=== PATIENT | male | born 1950 | race Caucasian/White ===

== ENCOUNTER 2018-08-08 18:17 | Emergency (ER) | payer OTHER, MEDICARE ==
--- OUTSIDE RECORDS SUMMARY | 2018-08-08 18:22 | XMS REPORT ---
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 Active Onset: 02/07/2007 Pure hypercholesterolemia Hermilo Prather M.D. Active Onset: 12/09/2008 Essential hypertension Hermilo Prather M.D. Active Family History Date Family Member(s) Problem(s) Comments Father Congestive Heart Failure (CHF) Mother Diabetes Mellitus, II Mother Heart Disease Mother Hypertension First Brother Diabetes Mellitus, II First Sister Immune system disorder Social History Type Date Description Comments Cigarette Use Nonsmoker Smoking Patient is a former smoker Exercise Type/Frequency Current Does not exercise None The patient is not currently active Allergies, Adverse Reactions, Alerts Date Description Reaction Status Severity Comments 04/29/2011 NKDA active Medications Medication Date Status Form Strength Qnty SIG Indications Ordering Provider Shingrix 07/31 Active Suspension 50mcg/0.5 1unit 1 vaccine Z23 Gabrielle Sophy /2018 Rec ML s administniall Yang NP red intramusc ular Atorvastatin 10/08 Active Tablets 80mg 90tab Take 1 E78.4 s Tablet By Ronen, Mouth MAGNETIC TAPE COMPOSER OPERATOR Every Day Ramipril 10/08 Active Capsules 5mg 90cap Take One I10 s Capsule Ronen, By Mouth MAGNETIC TAPE COMPOSER OPERATOR Every Day Nitrostat 03/16 Active Tablets 0.4mg 30tab 1 sl as Sub s needed, Yamilka, repeat M.D. every 5 minutes up to three tabs, call 911 Ecasa 05/05 Active 81mg 1 po qd /[facility] Hydrochlorothiazi Active Tablets 25mg 90tab 1 by I10 Samara de /0000 s mouth Ronen, every day MAGNET[employer] TAPE COMPOSER OPERATOR Toprol XL Active Tablets ER 50mg 90tab Take 1 I10 Samara /0000 24HR s Tablet By Ronen, Mouth MAGNETIC TAPE COMPOSER OPERATOR Every Day Cheratussin ac 08/12 Hx Syrup 100-10mg/ 4oz 1-2 R0 5ML teaspoon Robin, - by mouth Afnp-C 01/19 night at bedtime as needed cough Azithromycin 08/12 Hx Tablets 250mg 6tabs 2 tabs R05 today; Robin, - then one Afnp-C 08/17 tab day x 4 more days Pneumovax 23 07/09 Hx Injection 25mcg/0.5 May give ML him the Yamilka, - pcv13 M.D. 07/10 vaccine /2014 Cephalexin 11/01 Hx Tablets 500mg 30tab 1 by 680.2 s nasim Hawkins NP - three 11/11 times day x 10 days Androgel Pump 11/23 Hx Gel 1% Gel 150gr apply 5 Pump ams gm daily. Yamilka, - (4 M.D. 10/08 pumps) code f Metformin HCL 11/14 Hx Tablets 500mg 60tab 1 po bid 790.21 s Rodolfo, - MAGNETIC TAPE COMPOSER OPERATOR 11/22 Ramipril 10/25 Hx Capsules 2.5mg 30cap 1 po 401.9 Nicol /2014 s daily Rodolfo, - MAGNETIC TAPE COMPOSER OPERATOR 10/08 Lipitor 05/22 Hx Tablets 80mg 30tab take 1 272.0 Hermilo A. s tablet by Yamilka, - mouth M.D. 10/08 every day Androgel Pump 01/05 Hx Gel 1% Gel 150gr apply 5 Hermilo . Pump ams gm daily. Yamilka, - (4 M.D. 10/25 pumps) code f Androgel 10/15 Hx Gel 50mg/5GM 150gm 50 mg Hermilo A. once a Darmary, - day (4 M.D. 01/05 pumps) Niaspan 09/14 Hx Tablets ER 500mg 30tab one Samara s tablet po Ronen, - [facility] MAGNETIC TAPE COMPOSER OPERATOR 10/25 Niaspan 05/12 Hx Tablets ER 500mg 30tab one Hermilo . s tablet po Darlow, - qhs M.D. 09/14 Androderm 07/31 Hx Patches 5mg/24HR 30uni 1 patch Hermilo A. 24HR ts q Darmary, - M.D. 10/25 Simvastatin 03/13 Hx Tablets 80mg 90tab 1 po Michaelle M. s daily LaFace, - M.D. 03/13 Vytorin 03/13 Hx Tablets 10-80mg 30tab Take 1 Hermilo A. s Tablet Darlow, - Every Day M.D. 05/22 Cialis 10/14 Hx Tablets 20mg 8tabs Take 12 Hermilo A. Tablet Darmary, - Once A M.D. 09/14 Day pr as Directed 1 hour Before Sexual Relations MRI 06/04 Hx MRI r Hermilo A. kneee Yamilka, - without M.D. 10/10 dx;729.5 Out Of Work Until 07/18 Hx out of 729.5 Hermilo A. work Yamilka, - until M.D. 06/04 notice Physical Therapy 07/18 Hx treatment 729.5 Hermilo A. and Yamilka, - evaluatio M.D. 06/04 n posterior thigh pain Out Of Work Until 07/12 Hx out of Jose Eduardo F. /2006 work Shallish, - until M.D. 07/1807/17/07 Lab 07/11 Hx d-dimer 729.81 Hermilo A. stat Yamilka, - hold/call M.D. 07/12 dx: dvt Altace 05/05 Hx Capsules 2.5mg 30cap 1 po qd Hermilo A. s Yamilka - M.DPamella 10/10 Omacor 09/02 Hx 1Gram 120un 2 po bid Hermilo A. its Yamilka - M.D. 10/10 Vytorin 09/02 Hx Tabs 10-80mg 30tab Take 1 Hermilo A. s Tablet Yamilka, - Every Day M.D. 03/13 Zocor 11/03 Hx 80mg 30uni 1 po qd Hermilo A. Layton Yusuf M.Bryant 09/02 Zetia 03/04 Hx 10mg 30uni 1 qd Hermilo A. Layton Yusuf.Bryant 09/02 Ec Asa 11/03 Hx 325mg 1 qd [facility] Metoprolol 08/16 Hx 50 0unit / PO Hermilo A. s bid Yamilka - Kevin.DPamella 11/03 Nitroquick 08/16 Hx 0.3mg 50uni 1 SL prn Michaelle M. ts X 3 Layton Ospina M.D. 03/17 Zocor 08/16 Hx 40mg 30uni 1 qhs Hermilo A. Layton Yusuf.Bryant 11/03 Plavix 08/16 Hx 75mg 30uni 1 PO qd Hermilo A. Layton Yusuf M.D. 11/03 Vasotec 08/16 Hx 5mg 90uni One qd Hermilo A. Layton Yusuf M.D. 11/03 Naproxen 09/09 Hx 375mg Tab 50uni 1 PO tid Antony Payan For One Blumkin, - Week Then M.D. 08/16 tid prn /1999 Lovaza Hx Caps 1gm 120ca take 2 Unknown /0000 ps capsules - qd 10/08 Ramipril Hx Capsules 2.5mg 30cap Take 1 Unknown /0000 s Capsule - Every Day 10/25 Cialis Hx Tablets 10mg 1 by Unknown /0000 mouth - q72hr as 11/22 Tussin CF Max Hx Liquid 5-10-200m 2 Unknown Multi-Symptom /0000 g/5ML tablespoo Cold - ns by 08/12 every 6 hrs as needed Mucinex Hx Tablets ER 600mg 1 by Unknown /0000 12HR mouth - twice a Immunizations CPT Code Status Date Vaccine Lot # [id number] Given 07/16/2017 High-Dose, Influenza Virus Vacccine-fluzone 65 and older [id number] Given 11/01/2016 Pneumococcal Immunization 11050 Given 09/13/2016 High-Dose, Influenza Virus Vacccine-fluzone 65 and older 24296 Given 08/21/2015 High-Dose, Influenza Virus Vacccine-fluzone 65 and older 07420 Given 10/08/2014 Influenza vac quadrivalent preservative free 3yrs [id number] and up Vital Signs Date Vital Result Comment 07/31/2018 BP Systolic 130 mmHg BP Diastolic 72 mmHg Heart Rate 72 /min Body Temperature 97.9 F Respiratory Rate 16 /min Height 70 inches 5'10" Weight 334.25 lb BMI (Body Mass Index) 48.0 kg/m2 01/19/2017 BP Systolic 144 mmHg BP Diastolic 88 mmHg Heart Rate 88 /min Body Temperature 98.4 F Respiratory Rate 18 /min Weight 337.00 lb 08/12/2015 BP Systolic 170 mmHg BP Diastolic 90 mmHg Heart Rate 76 /min Body Temperature 99.3 F Respiratory Rate 18 /min O2 % BldC Oximetry 96 % URI Height 70 inches 5'10" Weight 335.00 lb BMI (Body Mass Index) 48.1 kg/m2 07/09/2015 BP Systolic 156 mmHg BP Diastolic 70 mmHg Heart Rate 68 /min Body Temperature 97.1 F Respiratory Rate 12 /min Height 70 inches 5'10" Weight 330.00 lb BMI (Body Mass Index) 47.3 kg/m2 11/01/2014 BP Systolic 142 mmHg BP Diastolic 80 mmHg Heart Rate 88 /min Body Temperature 98.6 F Respiratory Rate 18 /min Height 71 inches 5'11" Weight 332.00 lb BMI (Body Mass Index) 46.3 kg/m2 10/08/2014 BP Systolic 150 mmHg BP Diastolic 78 mmHg Heart Rate 80 /min Body Temperature 98.7 F Respiratory Rate 18 /min Height 71 inches 5'11" Weight 330.00 lb BMI (Body Mass Index) 46.0 kg/m2 11/22/2013 BP Systolic 140 mmHg BP Diastolic 68 mmHg Heart Rate 72 /min Body Temperature 98.6 F Respiratory Rate 20 /min Height 71 inches 5'11" Weight 330.00 lb BMI (Body Mass Index) 46.0 kg/m2 10/25/2013 BP Systolic 148 mmHg BP Diastolic 86 mmHg Heart Rate 68 /min Body Temperature 97.5 F Respiratory Rate 16 /min Height 70.75 inches 5'10.75" measured Weight 337.00 lb BMI (Body Mass Index) 47.3 kg/m2 09/14/2011 BP Systolic 110 mmHg BP Diastolic 60 mmHg Heart Rate 66 /min Body Temperature 97.0 F Respiratory Rate 20 /min Height 70.75 inches 5'10.75" Weight 319.00 lb BMI (Body Mass Index) 44.8 kg/m2 04/12/2011 BP Systolic 124 mmHg BP Diastolic 80 mmHg Heart Rate 64 /min Body Temperature 97.7 F Respiratory Rate 20 /min Height 70.75 inches 5'10.75" Weight 324.00 lb BMI (Body Mass Index) 45.5 kg/m2 Right Visual Acuity Distance 20/25 corrected Left Visual Acuity Distance 20/40 corrected 07/15/2010 BP Systolic 132 mmHg BP Diastolic 80 mmHg Heart Rate 72 /min Body Temperature 98.9 F Respiratory Rate 18 /min Height 70.75 inches 5'10.75" Weight 325.00 lb BMI (Body Mass Index) 45.6 kg/m2 03/13/2010 BP Systolic 132 mmHg BP Diastolic 72 mmHg Heart Rate 72 /min Body Temperature 97.1 F Weight 323.00 lb 12/09/2008 BP Systolic 120 mmHg BP Diastolic 78 mmHg Heart Rate 76 /min Body Temperature 97.0 F Respiratory Rate 20 /min Weight 317.00 lb 10/10/2008 BP Systolic 130 mmHg BP Diastolic 64 mmHg Heart Rate 72 /min Body Temperature 98.1 F Respiratory Rate 16 /min Height 70.75 inches 5'10.75" Weight 306.00 lb BMI (Body Mass Index) 43.0 kg/m2 06/04/2008 BP Systolic 138 mmHg BP Diastolic 72 mmHg Heart Rate 88 /min Height 72 inches 6'0" Weight 299.00 lb BMI (Body Mass Index) 40.5 kg/m2 08/07/2007 BP Systolic 128 mmHg BP Diastolic 70 mmHg Heart Rate 72 /min Height 72 inches 6'0" Weight 304.00 lb BMI (Body Mass Index) 41.2 kg/m2 07/18/2007 BP Systolic 122 mmHg BP Diastolic 70 mmHg Heart Rate 74 /min Respiratory Rate 16 /min Height 6.00 inches 0'6" Weight 304.00 lb BMI (Body Mass Index) 5936.4 kg/m2 07/11/2007 BP Systolic 122 mmHg BP Diastolic 70 mmHg Heart Rate 76 /min Body Temperature 98.2 F Respiratory Rate 16 /min Height 6.00 inches 0'6" Weight 298.00 lb BMI (Body Mass Index) 5819.3 kg/m2 02/07/2007 BP Systolic 138 mmHg BP Diastolic 90 mmHg Heart Rate 84 /min Respiratory Rate 16 /min Height 6.00 inches 0'6" Weight 294.00 lb BMI (Body Mass Index) 5741.2 kg/m2 05/05/2006 BP Systolic 132 mmHg BP Diastolic 82 mmHg Heart Rate 72 /min Respiratory Rate 16 /min Height 6.00 inches 0'6" Weight 290.00 lb BMI (Body Mass Index) 5663.1 kg/m2 09/02/2005 BP Systolic 130 mmHg BP Diastolic 82 mmHg Heart Rate 72 /min Respiratory Rate 18 /min Height 6.00 inches 0'6" 08/12/2005 BP Systolic 120 mmHg BP Diastolic 80 mmHg Heart Rate 60 /min Height 6.00 inches 0'6" Weight 297.00 lb BMI (Body Mass Index) 5799.8 kg/m2 05/25/2005 BP Systolic 138 mmHg BP Diastolic 72 mmHg Heart Rate 72 /min Respiratory Rate 18 /min Height 6.00 inches 0'6" 08/06/2004 BP Systolic 120 mmHg BP Diastolic 78 mmHg Heart Rate 84 /min Height 6.00 inches 0'6" Weight 289.00 lb BMI (Body Mass Index) 5643.5 kg/m2 06/04/2003 BP Systolic 128 mmHg BP Diastolic 72 mmHg Heart Rate 74 /min Respiratory Rate 18 /min Height 6.00 inches 0'6" Weight 285.00 lb BMI (Body Mass Index) 5565.4 kg/m2 02/28/2003 BP Systolic 112 mmHg BP Diastolic 70 mmHg Height 6.00 inches 0'6" Weight 280.00 lb BMI (Body Mass Index) 5467.8 kg/m2 05/07/2002 BP Systolic 120 mmHg BP Diastolic 76 mmHg Heart Rate 74 /min Height 6.00 inches 0'6" Weight 278.00 lb BMI (Body Mass Index) 5428.7 kg/m2 06/30/2001 BP Systolic 132 mmHg BP Diastolic 72 mmHg Height 6.00 inches 0'6" Weight 280.00 lb BMI (Body Mass Index) 5467.8 kg/m2 01/10/2001 BP Systolic 122 mmHg BP Diastolic 82 mmHg Heart Rate 88 /min Height 6.00 inches 0'6" Weight 271.00 lb BMI (Body Mass Index) 5292.0 kg/m2 11/03/2000 BP Systolic 120 mmHg LG Cuff, RT Arm BP Diastolic 70 mmHg LG Cuff, RT Arm BP Systolic Recheck 120 mmHg LT Arm BP Diastolic Recheck 80 mmHg LT Arm Heart Rate 72 /min Height 6.00 inches 0'6" Weight 264.00 lb BMI (Body Mass Index) 5155.3 kg/m2 08/16/2000 BP Systolic 118 mmHg LA, LG Cuff BP Diastolic 60 mmHg LA, LG Cuff Heart Rate 72 /min Reg Height 6.00 inches 0'6" Weight 265.00 lb BMI (Body Mass Index) 5174.9 kg/m2 09/02/1997 BP Systolic 140 mmHg BP Diastolic 80 mmHg Height 6.00 inches 0'6" Weight 264.00 lb Results Test Date Test Result H/L Range Note Comprehensive Metabolic Prof 07/31/2018 Sodium 141 mEq/L 134-149 Potassium 4.0 mEq/L 3.6-5.5 Chloride 98 mEq/L 94-112 Carbon Dioxide 25 mEq/L 21-32 Glucose 157 mg/dL High 70-105 BUN 14 mg/dL 6-26 Creatinine 0.9 mg/dL 0.6-1.4 BUN/Creat Ratio 15.6 CALC 8.0-36.0 Calcium 9.7 mg/dL 8.6-10.2 Total Protein 8.0 g/dL 6.4-8.3 Albumin 4.6 g/dL 3.8-5.5 Globulin 3.4 g/dL 2.0-4.8 A/G Ratio 1.4 CALC 0.6-2.3 Alk. Phosphatase 59 U/L 22-95 Alt (SGPT) 45 U/L High 7-35 Ast (Sgot) 38 U/L High 5-34 Total Bilirubin 0.6 mg/dL 0.2-1.3 GFR Non- >60 ml/min/1.73m^ >=60 GFR >60 ml/min/1.73m^ >=60 Laboratory test finding 07/31/2018 TSH 2.99 mIU/L 0.50-6.00 PSA 0.3 ng/mL 0.0-4.0 Lipid Profile 07/31/2018 Cholesterol 206 mg/dL High 120-200 Triglycerides 320 mg/dL High 30-200 HDL Cholesterol 30 mg/dL 30-70 LDL (Calculated) 112 CALC 0-129 VLDL Cholesterol 64 mg/dL High 0-50 HDL Risk Factor 6.9 CALC High 0.0-4.4 Laboratory test finding 07/31/2018 LDL, Direct 134 mg/dL High 0-130 CBC Electronic ([facility] New) 07/31/2018 WBC 6.57 4.0-10.0 RBC 4.89 3.93-6.0 Hemoglobin (Fma/CMC/CTX) 14.8 g/dL 12.0-17.0 Hematocrit (Fma/CMC/CTX) 44.3 % 35.0-50.0 Mean Corpuscular Vol 90.6 fL 80-95 Mean Corpuscular Hemoglobin 30.3 pg 25.6-32.2 Mean Corpuscular Hemo Concen 33.4 g/dL 32.2-36.0 Platelets 262 10^3/ul 163-400 RDW-CV 15.2 High 11.6-14.4 Mean Platelet Volume 9.9 fL 8.0-12.4 Absolute Neutrophils BLD 4.23 1.56-6.13 Absolute Lymphocytes 1.52 1.18-3.74 Absolute Monocytes BLD Auto 0.54 0.24-0.82 Absolute Eos Blood 0.23 0.04-0.54 Absolute Basophils 0.04 0.01-0.08 Neutrophil % 64.4 % 34.0-70.0 Lymph% 23.1 % 20.0-52.0 Monocytes % 8.2 % 5.0-12.0 Eos % 3.5 % 0.7-7.0 Basophil% 0.6 % 0-1.2 Lipid Profile 01/19/2017 Cholesterol 203 mg/dL High 120-200 Triglycerides 173 mg/dL 30-200 HDL Cholesterol 33 mg/dL 30-70 LDL (Calculated) 135 CALC High 0-129 VLDL Cholesterol 35 mg/dL 0-50 HDL Risk Factor 6.2 CALC High 0.0-4.4 Comprehensive Metabolic Prof 01/19/2017 Sodium 138 mEq/L 134-149 Potassium 4.5 mEq/L 3.6-5.5 Chloride 99 mEq/L 94-112 Carbon Dioxide 32 mEq/L 21-32 Glucose 96 mg/dL 70-105 BUN 14 mg/dL 6-26 Creatinine 0.9 mg/dL 0.6-1.4 BUN/Creat Ratio 15.6 CALC 8.0-36.0 Calcium 9.5 mg/dL 8.6-10.2 Total Protein 7.8 g/dL 6.4-8.3 Albumin 4.5 g/dL 3.8-5.5 Globulin 3.3 g/dL 2.0-4.8 A/G Ratio 1.4 CALC 0.6-2.3 Alk. Phosphatase 52 U/L 22-95 Alt (SGPT) 38 U/L High 7-35 1 Ast (Sgot) 28 U/L 5-34 Total Bilirubin 0.6 mg/dL 0.2-1.3 GFR Non- >60 ml/min/1.73m^ >=60 GFR >60 ml/min/1.73m^ >=60 Laboratory test finding 01/19/2017 TSH 4.31 mIU/L 0.50-6.00 Free T4 0.58 ng/dL Low 0.75-1.54 2 Testosterone 296.9 ng/dL 262.0-870.0 PSA 0.4 ng/mL 0.0-4.0 CBC Electronic (Fma) 01/19/2017 WBC 7.0 3.6-9.6 RBC 5.13 3.90-5.70 Hemoglobin (Fma/CMC/CTX) 15.2 g/dL 12.1 - 17.2 Hematocrit (Fma/CMC/CTX) 46.5 % 36.1 - 50.3 Platelets 253 10^3/ul 150-400 Lymph% 32.9 % 17.0-48.0 Mixed% 8.0 Neutrophils % 59.1 Mean Corpuscular Vol 91 82.2-97.4 Mean Corpuscular Hemoglobin 29.7 27.6-33.3 Mean Corpuscular Hemo Concen 32.7 32.0-36.0 RDW 15.9 High 11.6-13.7 Mean Platelet Volume 7.4 5.5-11.0 Comprehensive Metabolic Prof 01/09/2016 Sodium 139 mEq/L 134-149 Potassium 4.5 mEq/L 3.6-5.5 Chloride 99 mEq/L 94-112 Carbon Dioxide 32 mEq/L 21-32 Glucose 97 mg/dL 70-105 BUN 12 mg/dL 6-26 Creatinine 0.8 mg/dL 0.6-1.4 BUN/Creat Ratio 15.0 CALC 8.0-36.0 Calcium 9.0 mg/dL 8.6-10.2 Total Protein 7.6 g/dL 6.4-8.3 Albumin 4.3 g/dL 3.8-5.5 Globulin 3.3 g/dL 2.0-4.8 A/G Ratio 1.3 CALC 0.6-2.3 Alk. Phosphatase 56 U/L 22-95 Alt (SGPT) 42 U/L High 7-35 3 Ast (Sgot) 29 U/L 5-34 Total Bilirubin 0.7 mg/dL 0.2-1.3 GFR Non- >60 ml/min/1.73m^ >=60 GFR >60 ml/min/1.73m^ >=60 Lipid Profile 01/09/2016 Cholesterol 203 mg/dL High 120-200 Triglycerides 159 mg/dL 30-200 HDL Cholesterol 27 mg/dL Low 30-70 4 LDL (Calculated) 144 CALC High 0-129 VLDL Cholesterol 32 mg/dL 0-50 HDL Risk Factor 7.5 CALC High 0.0-4.4 Laboratory test 11/18/2015 Surgical Pathology SEE RESULT BELOW 5 finding Laboratory test 07/09/2015 PSA 0.2 ng/mL 0.0-4.0 6 finding Lipid Profile 07/09/2015 Cholesterol 221 mg/dL High 120-200 Triglycerides 149 mg/dL 30-200 HDL Cholesterol 32 mg/dL 30-70 LDL (Calculated) 159 CALC High 0-129 VLDL Cholesterol 30 mg/dL 0-50 HDL Risk Factor 6.9 CALC High 0.0-4.4 Comprehensive Metabolic Prof 07/09/2015 Sodium 142 mEq/L 134-149 Potassium 4.2 mEq/L 3.6-5.5 Chloride 100 mEq/L 94-112 Carbon Dioxide 25 mEq/L 21-32 Glucose 90 mg/dL 70-105 BUN 16 mg/dL 6-26 Creatinine 0.8 mg/dL 0.6-1.4 BUN/Creat Ratio 20.0 CALC 8.0-36.0 Calcium 9.6 mg/dL 8.6-10.2 Total Protein 7.8 g/dL 6.4-8.3 Albumin 4.7 g/dL 3.8-5.5 Globulin 3.1 g/dL 2.0-4.8 A/G Ratio 1.5 CALC 0.6-2.3 Alk. Phosphatase 49 U/L 22-95 Alt (SGPT) 47 U/L High 7-35 7 Ast (Sgot) 35 U/L High 5-34 8 Total Bilirubin 0.7 mg/dL 0.2-1.3 GFR Non- >60 ml/min/1.73m^ >=60 GFR >60 ml/min/1.73m^ >=60 Comprehensive Metabolic Prof 10/08/2014 Sodium 138 mEq/L 134-149 Potassium 4.3 mEq/L 3.6-5.5 Chloride 96 mEq/L 94-112 Carbon Dioxide 31 mEq/L 21-32 Glucose 110 mg/dL High 70-105 9 BUN 17 mg/dL 6-26 Creatinine 0.8 mg/dL 0.6-1.4 BUN/Creat Ratio 21.3 CALC 8.0-36.0 Calcium 9.7 mg/dL 8.6-10.2 Total Protein 8.0 g/dL 6.4-8.3 Albumin 4.3 g/dL 3.8-5.5 Globulin 3.7 g/dL 2.0-4.8 A/G Ratio 1.2 CALC 0.6-2.3 Alk. Phosphatase 50 U/L 22-95 Alt (SGPT) 52 U/L High 7-35 10 Ast (Sgot) 32 U/L 5-34 Total Bilirubin 0.7 mg/dL 0.2-1.3 Lipid Profile 10/08/2014 Cholesterol 230 mg/dL High 120-200 Triglycerides 153 mg/dL 30-200 HDL Cholesterol 31 mg/dL 30-70 LDL (Calculated) 168 CALC High 0-129 VLDL Cholesterol 31 mg/dL 0-50 HDL Risk Factor 7.4 CALC High 0.0-4.4 Laboratory test 11/22/2013 Testosterone Total 188.04 ng/dL Low 262-870 11 finding Laboratory test 11/14/2013 Hemoglobin A1c 5.9 % High 4.1-5.7 finding (a/[facility] [place],CX) Laboratory test 11/02/2013 TSH 4.32 mIU/L 0.50-6.00 finding PSA 0.27 ng/mL 0.00-4.00 Lipid Profile 11/02/2013 Cholesterol 232 mg/dL High 120-200 HDL 24 mg/dL Low 30-70 Triglycerides 144 mg/dL 30-200 HDL Risk Factor 9.7 CALC High 0.0-4.4 LDL (Calculated) 179 CALC High 0-129 VLDL (Calculated) 29 mg/dL 0-50 CBC Electronic ([facility]) 11/02/2013 WBC 5.9 3.6-9.6 RBC 4.95 3.90-5.70 Hemoglobin (a/CMC/CTX) 14.8 g/dL 12.1 - 17.2 Hematocrit (a/CMC/CTX) 44.9 % 36.1 - 50.3 Platelets 215 10^3/ul 150-400 Lymph% 35.8 % 17.0-48.0 Mixed% 6.3 Neutrophils % 57.9 Mean Corpuscular Vol 91 82.2-97.4 Mean Corpuscular Hemoglobin 29.8 27.6-33.3 Mean Corpuscular Hemo Concen 32.9 32.0-36.0 RDW 15.0 High 11.6-13.7 Mean Platelet Volume 6.5 6.5-11.0 Ua - Micro ([facility]) 11/02/2013 Appearance CLEAR Color YELLOW Glucose, Urine (a/CMC/CTX) NEG Bilirubin NEG Ketones NEG SP Grav 1.025 Blood SMALL PH 5.5 Protein NEG Urobil 0.2 Nitrite NEG Leukocytes (a/CMC/Centrex) NEG Hyaline - /Lpf Granular - /Lpf WBC (a,Centrex) - RBC 1-3 Mucus (Fma/CBC/Centrex) SMALL AMOUNT /Lpf Epith - /Lpf Bacteria - /Hpf Amorphous (Fma/CMC/Centrex) - /Lpf Crystals, Fluid (Fma/CMC/CTX) - Z#Comments - Comprehensive Metabolic Prof 11/02/2013 Albumin 4.9 g/dL 3.8-5.5 Alk. Phos. 57 U/L 22-95 Alt (SGPT) 56 U/L High 10-40 Ast (Sgot) 37 U/L High 5-34 BUN 22 mg/dL 6-26 Calcium 9.5 mg/dL 8.6-10.2 Chloride 96 mEq/L 94-112 Creatinine 1.1 mg/dL 0.6-1.4 Carbon Dioxide 30 mEq/L 21-32 Glucose 119 mg/dL High 70-105 Sodium 138 mEq/L 134-149 Total Bilirubin 0.6 mg/dL 0.2-1.3 Total Protein 7.9 g/dL 6.3-8.1 Potassium 4.3 mEq/L 3.6-5.5 Globulin 2.9 g/dL 2.0-4.8 A/G Ratio 1.7 Calc 0.6-2.3 BUN/Creat Ratio 20.1 Calc 8.0-36.0 Laboratory test finding 11/02/2013 Microalb, Random 29.8 mg/L 0.5-37 (Fma/CMC/CTX) Ua - Micro (Fma) 04/12/2011 Appearance clear Color yellow Glucose, Urine (Fma/CMC/CTX) - Bilirubin - Ketones - SP Grav >1.030 Blood moderate PH 5.5 Protein - Urobil 0.2 Nitrite - Leukocytes (Fma/CMC/Centrex) - Hyaline - /Lpf Granular - /Lpf WBC (Fma,Centrex) 0-2 RBC 3-5 Mucus (Fma/CBC/Centrex) sm amt /Lpf Epith - /Lpf Bacteria rare /Hpf Amorphous (Fma/CMC/Centrex) - /Lpf Crystals, Fluid (Fma/CMC/CTX) - Z#Comments - Laboratory test finding 04/12/2011 PSA 0.20 ng/mL 0.00-4.00 12 Lipid Profile 04/12/2011 Cholesterol 149 mg/dL 120-200 HDL 27 mg/dL Low 30-70 13 Triglycerides 129 mg/dL 30-200 HDL Risk Factor 5.5 CALC High 0.0-4.0 LDL (Calculated) 97 CALC 0-129 VLDL (Calculated) 26 mg/dL 0-50 [facility] Prof 04/12/2011 Albumin 4.8 g/dL 3.8-5.5 Alk. Phos. 41 U/L 22-95 Alt (SGPT) 42 U/L High 10-40 Ast (Sgot) 40 U/L High 5-34 BUN 15 mg/dL 6-26 Calcium 9.0 mg/dL 8.6-10.2 Chloride 102 mEq/L 94-112 Creatinine 0.9 mg/dL 0.6-1.4 Carbon Dioxide 26 mEq/L 21-32 Glucose 112 mg/dL High 70-105 14 Sodium 138 mEq/L 134-149 Total Bilirubin 0.4 mg/dL 0.2-1.3 Total Protein 7.1 g/dL 6.3-8.1 Potassium 4.5 mEq/L 3.6-5.5 Globulin 2.4 g/dL 2.0-4.8 A/G Ratio 2.0 Calc 0.6-2.2 BUN/Creat Ratio 17.9 Calc 8.0-36.0 [facility] Prof 07/15/2010 Albumin 4.8 g/dL 3.8-5.5 Alk. Phos. 43 U/L 22-95 Alt (SGPT) 40 U/L 10-40 Ast (Sgot) 27 U/L 5-34 BUN 11 mg/dL 6-26 Calcium 8.7 mg/dL 8.6-10.2 Chloride 103 mEq/L 94-112 Creatinine 0.9 mg/dL 0.6-1.4 Carbon Dioxide 25 mEq/L 21-32 Glucose 105 mg/dL 70-105 Sodium 136 mEq/L 134-149 Total Bilirubin 0.5 mg/dL 0.2-1.3 Total Protein 7.4 g/dL 6.3-8.1 Potassium 4.0 mEq/L 3.6-5.5 Globulin 2.6 g/dL 2.0-4.8 A/G Ratio 1.8 Calc 0.6-2.2 BUN/Creat Ratio 12.8 Calc 8.0-36.0 Laboratory test 07/15/2010 Testosterone, Serum 171 ng/dL Low 280-800 finding Laboratory test 07/15/2010 Hemoglobin A1c 6.0 % High 4.1-5.7 finding (a/CMC,CX) Laboratory test 07/15/2010 PSA 0.20 ng/mL 0.00-4.00 finding TSH 3.15 mIU/L 0.50-6.00 Ua - Micro (a) 07/15/2010 Appearance clear Color yellow Glucose, Urine (Fma/CMC/CTX) neg Bilirubin neg Ketones neg SP Grav 1.015 Blood mod PH 5.0 Protein neg Urobil 0.2 Nitrite neg Leukocytes (Fma/CMC/Centrex) neg Hyaline - /Lpf Granular - /Lpf WBC (a,Centrex) 0-1 RBC 3-5 Mucus (Fma/CBC/[facility]rex) - /Lpf Epith - /Lpf Bacteria rare /Hpf Amorphous (Fma/CMC/Centrex) - /Lpf Crystals, Fluid (Fma/CMC/CTX) - Z#Comments - Lipid Profile 07/15/2010 Cholesterol 181 mg/dL 120-200 HDL 30 mg/dL 30-70 Triglycerides 157 mg/dL 30-200 HDL Risk Factor 6.0 CALC 4.2-7.0 LDL (Calculated) 119 CALC 0-129 VLDL (Calculated) 31 mg/dL 0-50 CBC ([facility]) 03/14/2010 WBC 5.3 3.6-9.6 RBC 4.80 3.90-5.70 Hemoglobin (Fma/CMC/CTX) 14.6 g/dL 12.1 - 17.2 Hematocrit (a/CMC/CTX) 43.5 % 36.1 - 50.3 Mean Corpuscular Vol 90.6 82.2-97.4 Mean Corpuscular Hemaglobin 30.4 27.6-33.3 Mean Corpuscular Hemo Concen 33.6 33.0-36.0 Platelets 207 10^3/ul 150-400 Lymph% 39.7 20.5-51.1 Mixed% 14.1 Neutrophils % 46.2 RDW 15.4 High 11.6-13.7 Mean Platelet Volume 10.0 7.4-10.4 Lipid Profile 03/14/2010 Cholesterol 166 mg/dL 120-200 HDL 29 mg/dL Low 30-70 15 Triglycerides 131 mg/dL 30-200 HDL Risk Factor 5.8 CALC 4.2-7.0 LDL (Calculated) 111 CALC 0-129 VLDL (Calculated) 26 mg/dL 0-50 Comprehensive Metabolic Prof 03/14/2010 Albumin 4.7 g/dL 3.8-5.5 Alk. Phos. 29 U/L 22-95 Alt (SGPT) 39 U/L 10-40 Ast (Sgot) 29 U/L 5-34 BUN 16 mg/dL 6-26 Calcium 9.8 mg/dL 8.6-10.2 Chloride 103 mEq/L 94-112 Creatinine 1.0 mg/dL 0.6-1.4 Carbon Dioxide 28 mEq/L 21-32 Glucose 93 mg/dL 70-105 Sodium 137 mEq/L 134-149 Total Bilirubin 0.5 mg/dL 0.2-1.3 Total Protein 7.5 g/dL 6.3-8.1 Potassium 4.4 mEq/L 3.6-5.5 Globulin 2.8 g/dL 2.0-4.8 A/G Ratio 1.7 Calc 0.6-2.2 BUN/Creat Ratio 16.0 Calc 8.0-36.0 Laboratory test finding 03/14/2010 Homocysteine 7.5 umol/L 0.0-15.0 16 Vitamin D, 25 Oh 19.4 ng/mL Low 32.0-100.0 16, 17 CRP (High Sensitivity) 2.27 mg/L 0.00-3.00 16, 18 Lipid Profile 12/09/2008 Cholesterol 204 mg/dL High 120-200 19 HDL 28 mg/dL Low 30-70 19, 20 Triglycerides 118 mg/dL 30-200 19 HDL Risk Factor 7.2 CALC High 4.2-7.0 19 LDL (Calculated) 152 CALC High 0-129 19 VLDL (Calculated) 24 mg/dL 0-50 19 Comprehensive Metabolic Prof 12/09/2008 Albumin 4.7 g/dL 3.8-5.5 19 Alk. Phos. 49 U/L - 19 Alt (SGPT) 38 U/L 10-40 19 Ast (Sgot) 31 U/L 5-34 19 BUN 20 mg/dL 6-26 19 Calcium 10.0 mg/dL 8.6-10.2 19 Chloride 106 mEq/L 94-112 19 Creatinine 0.8 mg/dL 0.6-1.4 19 Carbon Dioxide 24 mEq/L 21-32 19 Glucose 95 mg/dL 70-105 19 Sodium 144 mEq/L 134-149 19 Total Bilirubin 0.4 mg/dL 0.2-1.3 19 Total Protein 7.9 g/dL 6.3-8.1 19 Potassium 4.6 mEq/L 3.6-5.5 19 Globulin 3.3 g/dL 2.0-4.8 19 A/G Ratio 1.4 Calc 0.6-2.2 19 BUN/Creat Ratio 24.2 Calc 8.0-36.0 19 Laboratory test finding 12/09/2008 PSA 0.30 ng/mL 0.00-4.00 19 Ua - Micro (a) 12/09/2008 Appearance clear Color yellow Glucose, Urine (Fma/CMC/CTX) neg Bilirubin neg Ketones neg SP Grav 1.025 Blood moderate PH 5.0 Protein ssa neg Urobil 0.2 Nitrite neg Leukocytes (Fma/CMC/[facility]) neg Hyaline - /Lpf Granular - /Lpf WBC (Fma,Centrex) 1-2 RBC 4-6 Mucus (Fma/CBC/[facility]rex) - /Lpf Epith - /Lpf Bacteria trace /Hpf Amorphous (Fma/CMC/[facility]rex) - /Lpf Crystals, Fluid (Fma/CMC/CTX) - Z#Comments - Ua - Micro ([facility]) 11/12/2008 Appearance clear Color yellow Glucose - Bilirubin - Ketones - SP Grav 1.025 Blood mod PH 5.0 Protein ssa neg Urobil 0.2eu/dl Nitrite - Leukocytes (Fma/CMC/[facility]rex) - Hyaline - /Lpf Granular - /Lpf WBC (Fma,Centrex) 0-1 RBC 3-6 Mucus moderate /Lpf Epith occ /Lpf Bacteria rare /Hpf Amorphous - /Lpf Crystals, Fluid (Fma/CMC/CTX) - Z#Comments - CBC With Electronic Diff 10/16/2008 White Blood Count 5.6 CUMM 4.8-10.8 Red Cell Count 4.98 CUMM 4.6-6.2 Hemoglobin 15.3 g/dL 14.0-18.0 Hematocrit 45 % 42-52 Mean Corpuscular Volume 90 um3 80-94 Mean Corpuscular Hemoglob 31 pg 27-31 Mean Corpuscular HGB Cone 34 g/dL 32-36 Redcell Distribution WDTH 14 % 10.5-15 Platelet Count 235 CUMM 150-450 Mean Platelet Volume 8.1 um3 7.4-10.4 Gran % 53.9 % 38-83 Lymph % 30.0 % 25-47 Mononuclear % 10.2 % High 1-9 Eosinophil % 5.0 % 0-6 Basophil % 0.9 % 0-2 Abs Lymphs 1.7 1.0-4.8 Abs Mononuclear 0.6 0-0.8 Absolute Neutrophil Count 2.9 1.5-7.7 Abs Eosinophils 0.3 0-0.6 Abs Basophils 0.1 0-0.2 Ua - Micro (a) 10/10/2008 Appearance CLEAR Color YELLOW Glucose NEG Bilirubin NEG Ketones NEG SP Grav >1.030 Blood mod PH 6.0 Protein ssa neg Urobil 0.2 Nitrite neg Leukocytes (a/[facility]) neg Hyaline - /Lpf Granular - /Lpf WBC (a,[facility]rex) 0-2 RBC 3-6 Mucus sm amnt /Lpf Epith - /Lpf Bacteria - /Hpf Amorphous - /Lpf Crystals, Fluid (Fma/CMC/CTX) - Z#Comments - Comprehensive Metabolic Prof 10/10/2008 Albumin 4.5 g/dL 3.8-5.5 19 Alk. Phos. 51 U/L 22-95 19 Alt (SGPT) 50 U/L High 10-40 19 Ast (Sgot) 49 U/L High 5-34 19 BUN 17 mg/dL 6-26 19 Calcium 9.8 mg/dL 8.6-10.2 19 Chloride 101 mEq/L 94-112 19 Creatinine 1.1 mg/dL 0.6-1.4 19 Carbon Dioxide 23 mEq/L 21-32 19 Glucose 85 mg/dL 70-105 19 Sodium 144 mEq/L 134-149 19 Total Bilirubin 0.5 mg/dL 0.2-1.3 19 Total Protein 7.8 g/dL 6.3-8.1 19 Potassium 3.9 mEq/L 3.6-5.5 19 Globulin 3.3 g/dL 2.0-4.8 19 A/G Ratio 1.3 Calc 0.6-2.2 19 BUN/Creat Ratio 15.2 Calc 8.0-36.0 19 Lipid Profile 10/10/2008 Cholesterol 211 mg/dL High 120-200 19 HDL 30 mg/dL 30-70 19 Triglycerides 155 mg/dL 30-200 19 HDL Risk Factor 7.0 CALC 4.2-7.0 19 LDL (Calculated) 150 CALC High 0-129 19 VLDL (Calculated) 31 mg/dL 0-50 19 Laboratory test finding 07/11/2007 D Dimer Quantitative < 200 NG/ML < 230 21, 22 Lipid Profile 02/07/2007 Cholesterol 176 mg/dL 120-200 23 HDL 32 mg/dL 30-70 23 Triglycerides 114 mg/dL 30-200 23 HDL Risk Factor 5.5 CALC 4.2-7.0 23 LDL (Calculated) 122 CALC 0-129 23 VLDL (Calculated) 23 mg/dL 0-50 23 Comprehensive Metabolic Prof 02/07/2007 Albumin 4.6 g/dL 3.8-5.5 23 Alk. Phos. 56 U/L 22-95 23 Alt (SGPT) 34 U/L 10-40 23 Ast (Sgot) 26 U/L 5-34 23 BUN 19 mg/dL 6-26 23 Calcium 9.4 mg/dL 8.6-10.2 23 Chloride 100 mEq/L 94-112 23 Creatinine 1.0 mg/dL 0.6-1.4 23 Carbon Dioxide 28 mEq/L 21-32 23 Glucose 96 mg/dL 70-105 23 Sodium 140 mEq/L 134-149 23 Total Bilirubin 0.6 mg/dL 0.2-1.3 23 Total Protein 6.9 g/dL 6.3-8.1 23 Potassium 4.1 mEq/L 3.6-5.5 23 Globulin 2.2 g/dL 2.0-4.8 23 A/G Ratio 2.1 Calc 0.6-2.2 23 BUN/Creat Ratio 19.6 Calc 8.0-36.0 23 Laboratory test finding 02/07/2007 PSA 0.29 ng/mL 0.00-4.00 23 Lipid Profile(Fma) Male 04/26/2006 Cholesterol 186 mg/dL 120-200 (Fma/CMC/[facility]rex) Triglyceride 107 mg/dL 30-200 HDL Cholesterol (Fma) Male 21 VERIFIED mg/dL Low 30-70 LDL, Calculated (Fma/CMC) 144 CALC High 0-129 VLDL 21 0-50 HDL Risk Factor (Fma) 8.8 CALC High 4.2-7.0 Liver Function ([facility]) 04/26/2006 Total Protein 7.9 g/dL 6.3-8.1 Albumin ([facility]) 4.4 3.8-5.5 A/G Ratio ([facility]) 1.3 0.6-2.2 Globulin 3.4 2.0-4.8 Alkaline Phosphatase (F/C/CTX) 57 U/L 30-110 Alt (SGPT) ([facility]) 37 10-40 Ast (Sgot) ([facility]) 24 U/mL 5-34 Bilirubin, Total 0.6 mg/dL 0.2-1.3 Bilirubin, Direct 0.2 mg/dL 0-0.6 Bilirubin, Indirect 0.38 ml/dl 0.10-1.0 Liver Function ([facility]) 08/12/2005 Total Protein 7.7 g/dL 6.3-8.1 Albumin ([facility]) 4.7 3.8-5.5 A/G Ratio ([facility]) 1.6 0.6-2.2 Globulin 3.0 2.0-4.8 Alkaline Phosphatase (F/C/CTX) 44 U/L 30-110 Alt (SGPT) ([facility]) 37 10-40 Ast (Sgot) ([facility]) 33 U/mL 5-34 Bilirubin, Total 0.5 mg/dL 0.2-1.3 Bilirubin, Direct 0.3 mg/dL 0-0.6 Bilirubin, Indirect 0.14 ml/dl 0.10-1.0 Lipid Profile([facility]) Male 08/12/2005 Cholesterol 223 mg/dL High 120-200 Triglyceride 135 mg/dL 30-200 HDL Cholesterol ([facility]) Male 28 mg/dL Low 30-70 24 LDL, Calculated ([facility]) 168 CALC High 0-129 LDL Direct ([facility]) - mg/dL 0-130 VLDL 27 0-50 HDL Risk Factor ([facility]) 8.1 CALC High 4.2-7.0 Laboratory test finding 08/12/2005 PSA 0.31 0.0-4.0 Lipid Profile([facility]) Male 05/25/2005 Cholesterol 284 mg/dL High 120-200 Triglyceride 164 mg/dL 30-200 HDL Cholesterol (Fma) Male 28 mg/dL Low 30-70 25 LDL, Calculated ([facility]) 223 CALC High 0-129 LDL Direct ([facility]) - mg/dL 0-130 VLDL 33 0-50 HDL Risk Factor (Fma) 10.0 CALC High 4.2-7.0 Liver Function ([facility]) 05/25/2005 Total Protein 7.5 g/dL 6.3-8.1 Albumin ([facility]) 4.4 3.8-5.5 A/G Ratio ([facility]) 1.4 0.6-2.2 Globulin 3.2 2.0-4.8 Alkaline Phosphatase (F/C/CTX) 55 U/L 22-95 Alt (SGPT) ([facility]) 29 10-40 Ast (Sgot) ([facility]) 26 U/mL 5-34 Bilirubin, Total 0.6 mg/dL 0.2-1.3 Bilirubin, Direct 0.3 mg/dL 0-0.6 Bilirubin, Indirect 0.29 ml/dl 0.10-1.0 Lipid Profile([facility]) Male 11/10/2004 Cholesterol 197 mg/dL 120-200 Triglyceride 161 mg/dL 30-200 HDL Cholesterol (a) Male 29 RESULTS SCOT'D mg/dL Low 30-70 LDL, Calculated ([facility]) 136 CALC High 0-129 LDL, Direct - mg/dL 0-130 VLDL 32 0-50 HDL Risk Factor (Fma) 6.9 CALC 4.2-7.0 Liver Function ([facility]) 08/06/2004 Total Protein 8.0 g/dL 6.3-8.1 Albumin ([facility]) 4.5 3.8-5.5 A/G Ratio ([facility]) 1.3 0.6-2.2 Globulin 3.6 2.0-4.8 Alkaline Phosphatase (F/C/CTX) 47 U/L 30-110 Alt (SGPT) 33 7-35 Ast (Sgot) ([facility]) 27 U/mL 5-34 Bilirubin, Total 1.2 mg/dL 0.2-1.3 Bilirubin, Direct 0.2 mg/dL 0-0.6 Bilirubin, Indirect 1.01 ml/dl High 0.10-1.0 Lipid Profile(a) Male 08/06/2004 Cholesterol 223 mg/dL High 120-200 Triglyceride 164 mg/dL 30-200 HDL Cholesterol (Fma) Male 29 RESULT SCOT'D mg/dL Low 30-70 LDL, Calculated ([facility]) 161 CALC High 0-129 LDL, Direct - mg/dL 0-130 VLDL 33 0-50 HDL Risk Factor (Fma) 7.7 CALC High 4.2-7.0 Laboratory test finding 08/06/2004 PSA 0.31 0.0-4.0 Liver Function ([facility]) 06/24/2003 Total Protein 7.7 g/dL 6.3-8.1 Albumin ([facility]) 4.6 3.8-5.5 A/G Ratio ([facility]) 1.5 0.6-2.2 Globulin 3.0 2.0-4.8 Alkaline Phosphatase (F/C/CTX) 50 U/L 30-110 Alt (SGPT) ([facility]) 31 10-40 Ast (Sgot) ([facility]) 25 U/mL 5-34 Bilirubin, Total 0.7 mg/dL 0.2-1.3 Bilirubin, Direct 0.3 mg/dL 0-0.6 Bilirubin, Indirect 0.44 ml/dl 0.10-1.0 Lipid Profile ([facility]) 06/24/2003 Cholesterol ([facility]) 189 mg/dL 120-200 Triglyceride 146 mg/dL 30-200 HDL-Chol 29, VERIFIED Low 30-85 LDL, Calculated ([facility]) 130 CALC High 0-129 VLDL 29 0-50 HDL Risk Factor (Fma) 6.5 CALC 4.2-7.0 Laboratory test finding 06/24/2003 PSA ([facility]) 0.35 0.0-4.0 Liver Function ([facility]) 02/28/2003 Total Protein 8.1 g/dL 6.3-8.1 Albumin ([facility]) 4.9 3.8-5.5 A/G Ratio ([facility]) 1.5 0.6-2.2 Globulin 3.2 2.0-4.8 Alkaline Phosphatase (F/C/CTX) 58 U/L 22-95 Alt (SGPT) 33 10-40 Ast (Sgot) ([facility]) 33 U/mL 5-34 Bilirubin, Total 0.7 mg/dL 0.2-1.3 Bilirubin, Direct 0.3 mg/dL 0-0.6 Bilirubin, Indirect 0.39 ml/dl 0.10-1.0 Lipid Profile ([facility]) 02/28/2003 Cholesterol 236 mg/dL High 120-200 Triglyceride 254 mg/dL High 30-200 HDL-Chol 28 SEE DETAILS Low 30-70 26 LDL-Calculated ([facility]) INVALID CALC 0-129 VLDL 51 High 0-50 HDL Risk Factor ([facility]) 8.5 CALC High 4.2-7.0 Laboratory test finding 02/28/2003 LDL, Direct 201 mg/dL High 0-130 CBC Electronic ([facility]) 07/24/2002 WBC 5.3 4.8-10.8 RBC 5.22 4.6-6.2 Hemoglobin 15.2 g/dL 14.0-18.0 Hematocrit 46 % 42-52 Mean Corpuscular Vol 88 80-94 Mean Corpuscular Hemaglobin 29 27-31 Mean Corpuscular Hemo Concen 33 32-36 RDW 14 10.5-15 Platelets 280 CUMM 150-450 Mean Platelet Volume 7.4 7.4-10.4 Granulocytes 53.5 % 38-83 Lymphocytes 30.4 % 20-45 Monocytes 11.6 % High 1-9 Eosinophil 3.8 0-6 Basophil% 0.7 0-2 Abs Lymphs 1.6 1.0-4.8 Abs Mononuclear 0.6 0-0.8 Abs Grans 2.9 1.5-7.7 Abs Eosinophils 0.2 0-0.6 Abs Basophils 0 0-0.2 Liver Function ([facility]) 05/08/2002 Albumin 4.3 3.8-5.5 Alkaline Phosphatase 48 U/L 22-95 Bilirubin, Direct 0.3 mg/dL 0-0.6 Bilirubin, Total 0.4 mg/dL 0.2-1.3 Ast (Sgot) 24 5-40 Alt (SGPT) 27 10-40 Total Protein 7.3 g/dL 6.4-8.3 Bilirubin, Indirect 0.10 ml/dl 0.10-1.0 Lipid Profile ([facility]) 05/08/2002 Cholesterol 243 mg/dL High 140-200 Triglyceride 120 mg/dL 30-150 VLDL 24 0-50 LDL-Calculated 189 High 0-160 HDL-Chol 30 30-70 Liver Function ([facility]) 01/10/2001 Albumin 4.6 3.8-5.5 Alkaline Phosphatase 47 U/L 53-128 Bilirubin, Direct 0.1 mg/dL 0-0.6 Bilirubin, Total 0.4 mg/dL 0.2-1.3 Ast (Sgot) 22 9-44 Alt (SGPT) 31 10-40 Total Protein 7.6 g/dL 6.4-8.3 Bilirubin, Indirect 0.30 ml/dl 0.10-1.0 Lipid Profile ([facility]) 01/10/2001 Cholesterol 200 mg/dL 140-200 Triglyceride 103 mg/dL 30-150 VLDL 21 0-50 LDL-Calculated 148 0-160 HDL-Chol 31 30-70 Lipid Profile ([facility]) 11/27/2000 Triglyceride 106 mg/dL 40-200 Cholesterol 218 mg/dL High 100-200 HDL-Chol 30 Low 35-60 Cholesterol / HDL Ratio 7.27 AVG High 1-4.97 LDL-Calculated 167 High 1-130 Liver Function ([facility]) 11/27/2000 Total Protein 8.2 GM/DL High 6.2-8.1 Albumin 4.5 3.6-5.4 Globulin 3.7 2-4 A/G Ratio 1.2 0.9-2 Total Bilirubin 0.4 mg/dL 0.1-1.0 Bilirubin, Direct 0.10 mg/dL 0.0-0.3 Bilirubin, Indirect 0.30 mg/dL 0.1-0.75 Alkaline Phosphatase 55 U/L 39-117 Alt (SGPT) 27 1-40 Ast (Sgot) 23 1-34 1 consistent w/ previous results 2 RESULTS VERIFIED BY REPEAT ANALYSIS 3 consistent w/ previous results 4 consistent w/ previous results 5 SEE RESULT BELOW Name: SAMARA MARIN : [address]: Shivam Watts MD Acct: [id number] Unit: [id number] AGE: 65 Location: ENDO Re11/18/15 SEX: M Status: REG REF SPEC: [id number] RITA: 11/18/15- SUBM DR: Shivam Watts MD REQ: [id number] RECD: 11/18/15 STATUS: RENARD ENCINAS DR: Hermilo Prather MD _ ORDERED: LEVEL IV/3 FINAL DIAGNOSIS 1. Colon, at 45 cm, biopsy: -- Benign colonic mucosa with surface hyperplastic change. 2. Colon, at 80 cm, biopsy: -- Tubular adenoma. -- No high grade dysplasia or malignancy. 3. Colon, rectum, biopsy: -- Tubular adenoma. -- No high grade dysplasia or malignancy. CLINICAL HISTORY No additional information provided POST-OPERATIVE DIAGNOSIS Colonoscopy to cecum - rectum, 40 cm. and 80 cm. biopsied; 10 years GROSS DESCRIPTION 1. The specimen is received in formalin labeled, Biopsy Colon Polyp at 45 cm, and consists of a 0.6 x 0.2 x 0.2 cm mckeon-pink irregular soft tissue fragment, which is submitted entirely in one cassette. 2. The specimen is received in formalin labeled, Biopsy Colon Polyp at 80 cm, and consists of two mckeon-pink irregular soft tissue fragments measuring 0.3 x 0.2 x 0.2 cm and 0.7 x 0.2 x 0.1 cm, which are submitted entirely in one cassette. 3. The specimen is received in formalin labeled, Biopsy Rectal Polyp, and consists of a 0.4 x 0.3 x 0.2 cm mckeon-pink irregular soft tissue fragment, which is submitted entirely in one cassette. CONTINUED ON NEXT PAGE * ML=Testing performed at Main Lab DEPARTMENT OF PATHOLOGY, [facility] [email or web address] [place], [place] [address] Antony Cervantes M.D. Director [facility] # [id number] RUN DATE: 11/19/15 [facility] LAB LIVE PAGE 2 Patient: SAMARA MARIN [id number] (Continued) GROSS DESCRIPTION (Continued) Signed (signature on file) Nicol Montes MD 1328 END OF REPORT * ML=Testing performed at Main Lab DEPARTMENT OF PATHOLOGY, [facility] [email or web address] [place], [place] [address] Antony Cervantes M.D. Director [facility] # [id number] 6 FASTING 7 RESULTS VERIFIED BY REPEAT ANALYSIS 8 RESULTS VERIFIED BY REPEAT ANALYSIS 9 RESULTS VERIFIED BY REPEAT ANALYSIS 10 RESULTS VERIFIED BY REPEAT ANALYSIS 11 RESULT SCOT'D 12 FASTING 13 RESULT SCOT'D 14 RESULT SCOT'D 15 RESULT SCOT'D 16 FASTING; 2 SST 1 RED TOP SPUN POURED OFF IN TRANSPORT TUBE AND REFRIDGERATED 17 Recent studies consider the lower limit of 32.0 ng/mL to be a threshold for optimal health. Abran MANNING. J Nutr. 2004;135(2):317-22. 18 . hs-CRP Result (mg/L) Risk Level <1.0 Low 1.0-3.0 Average >3.0 High Patients with persistently unexplained, marked elevation of hs-CRP (greater than 10 mg/L) after repeated testing should be evaluated for non-cardiovascular etiologies. . 19 FASTING 20 RESULT SCOT'D 21 STAT RESULTS CALLED TO DR PRATHER/PATIENT TO WAITING HERE TO TALK WITH THE DOCTOR 22 Please note: The following may produce a false positive D Dimer test: - Rheumatoid factor greater than 60 IU/ml - Plasma hemoglobin greater than 0.05 gm/dl - Bilirubin greater than 50 mg/dl - Lipids greater than 1000 mg/dl - FDP greater than 20 ug/ml . 23 FASTING 24 RESULT VERIFIED BY REPEAT ANALYSIS 25 RESULT VERIFIED BY REPEAT ANALYSIS 26 RESULT VERIFIED BY REPEAT ANALYSIS Procedures Date CPT Code Description Status 07/31/2018 60267 Remove Impact Cerumen Irrigati Completed 10/03/2016 Colonoscopy Completed 08/12/2015 26766 Pulse Oximetry Completed 11/14/2013 41072 Finger Or Heel Stick Completed 09/14/2011 58964 Electrocardiogram Complete Completed 10/10/2008 77676 Electrocardiogram Complete Completed 07/18/2000 81391 Electrocardiogram Interpretation & Report Only Completed Encounters Type Date Location Provider CPT E/M Dx Office Visit 07/31/2018 2:15p [place] [address] I10 E78.5 Z23 H61.21 Z12.5 E78.1 Office Visit 01/19/2017 1:30p Main Office [place] 78303 E78.4 I10 E29.1 N40.0 Office Visit 08/12/2015 7:15p Main Office Jeniffer Kelly amador 723[address] R05 Office Visit 07/09/2015 1:00p [facility] Hermilo Prather M.D. 15081 Z00.00 I25.10 I10 Z12.11 Z12.5 Office Visit 11/01/2014 1:30p Main Office Amira Hawkins 56337 680.2 Office Visit 10/08/2014 11:00a Main Office Jeniffer Kelly amador 50555 401.9 272.4 V04.81 Office Visit 11/22/2013 1:20p Main Office Hermilo Prather M.D. 45198 V70.0 414.00 401.9 272.4 V76.51 257.2 Office Visit 10/25/2013 1:00p Main Office Nicol Crewsbhart, [facility] [address] 414.00 401.9 272.0 600.00 Office Visit 09/14/2011 7:45p Main Office Samara Hardwick, [facility] [address]94[address] 414.00 Office Visit 04/12/2011 3:10p [facility] Hermilo Prather M.D. 78375 V70.0 414.00 278.00 257.2 V76.44 Office Visit 07/15/2010 9:00a [facility] Hermilo Prather M.D. 58129 786.9 414.00 401.9 268.9 V76.44 257.2 278.00 Office Visit 03/13/2010 3:30p Main Office Michaelle Ospina M.D. 87618 272.0 414.00 268.9 Office Visit 12/09/2008 10:10a [facility] Hermilo Prather M.D. 68438 414.00 272.0 599.70 401.9 Office Visit 02/07/2007 9:40a Main Office Hermilo Prather M.D. 64758 414.00 272.0 V76.44 Office Visit 05/05/2006 4:00p Main Office Hermilo Prather M.D. 14809 414.00 272.0 368.9 Office Visit 09/02/2005 4:30p Main Office Hermilo Prather M.D. 40696 272.0 Office Visit 08/12/2005 10:00a Main Office Hermilo Prather M.D. 02689 414.00 272.0 V58.69 V76.41 V76.44 Office Visit 05/25/2005 11:00a Main Office Hermilo Prather M.D. 70548 414.00 272.0 110.1 V58.69 Office Visit 08/06/2004 2:40p Main Office Hermilo Prather M.D. 78048 414.00 272.0 V76.44 Office Visit 06/04/2003 3:00p Main Office Hermilo Prather M.D. 97896 414.00 272.4 786.09 Office Visit 02/28/2003 2:10p Main Office Hermilo Prather M.D. 95678 272.0 Office Visit 05/07/2002 2:00p Main Office Hermilo Prather M.D. 03825 Office Visit 06/30/2001 2:10p Main Office Hermilo Prather M.D. 41370 Office Visit 01/10/2001 9:20a Main Office Hermilo Prather M.D. 24731 Office Visit 11/03/2000 3:00p Main Office Hermilo Prather M.D. 22815 Office Visit 08/16/2000 7:40p Main Office Hremilo Prather M.D. 97943 Plan of Care Future Appointment(s):02/07/2019 9:30 am - Gabrielle aYng NP at Main [id number]/31/2018 - Gabrielle Yang NPI10 Essential (primary) hypertensionComments:The patient will continue to monitor blood pressure and let me know the blood pressure results if there are readings persistently above 140/80. Goal blood pressure is less than 140/80. Recommend low salt/cardiac diet and routine exercise. continue current medications encouraged weight loss - 20lb goal with Lobo before 10/20184854X95.5 Hyperlipidemia, unspecifiedComments:will recheck since you are hereFollow up:3-6 months - 3 if not following up with MD Lobo 6 if having follow up with JENNIFER Diamond23 Encounter for immunizationNew Medication:Shingrix 50 mcg/0.5MLH61.21 Impacted cerumen, right earComments:Warm water irrigation successful. Patient tolerated well. Discussed not to use Q tips, rather use a wash cloth around outside of ears. Avoid excessive use of headphones that enter ear canal, if using for long time use over ear type. Debrox as needed for excessive ear wax.Z12.5 Encounter for screening for malignant neoplasm of hwetupjlG53.1 Pure hyperglyceridemiaAllComments:~B_~U_Medication Management~b_~u_ Patient Understands medications he 's taking? Yes No Are there Barriers to Adherence? Yes No Has the patient been asked about herbal supplements and therapies, and OTC meds? Yes No ~B_~U_Care Plan~b_~u_1. Patient has been queried about patient's goals/preferences and functional/ lifestyle goals at relevant visits. If relevant, describe: na2. Treatment goals as explained to the patient: above3. Are there barriers to meeting treatment goals? Yes No If Yes, please describe:4. Self-Management goals as described to the patient:Yes NoAs always, we strongly encourage a healthy diet and making physical activity a part of your every day life. If you have questions about how or where to start, please contact the office.Follow up: Please schedule a full preventative well visit at your earliest convenience
--- OUTSIDE RECORDS SUMMARY | 2018-08-08 18:23 | XMS REPORT | Continuity of Care Document ---
:1950 External Reference #:[id number] Author Name Trinidad Jordan PA-C Address [address] [place] [address] Care Team Providers Name Role Phone Hermilo Prather M.D. Care Team Information Tile Layer Helper Unavailable Hermilo Prather M.D. Primary Care Physician Unavailable Payers Type Date Identification Numbers Payment Provider Subscriber Policy Number: [id number] [facility] cicayda. Steve Marin PayID: [id number] [address] [place] [address] Policy Number: [id number] [employer] Steve Marin PayID: [id number] [address] [place] [address] Advance Directives Description No Information Available Problems Date Description Provider Status Onset: 06/29/2018 Diffuse otitis externa Walker Dumont MD Active Onset: 06/29/2018 Sensorineural hearing loss Walker Dumont MD Active Onset: 06/29/2018 Impacted cerumen Walker Dumont MD Active Family History Date Family Member(s) Problem(s) Comments General Diabetes General Hearing Loss General Heart Attack Mother Hearing Loss Mother Heart Attack First Sister Hearing Loss Social History Type Date Description Comments Sex Unknown Occupation Retired Tobacco Use Start: Unknown End: Former Cigarette Smoker Unknown Tobacco Use Start: Unknown Never Smoked Cigars Tobacco Use Start: Unknown Never Smoked A Pipe Smokeless Tobacco Never Used Smokeless Tobacco ETOH Use Currently occasionally consumes alcohol Tobacco Use Start: Unknown End: Patient is a former smoker Unknown Recreational Drug Use .Never Used Drugs Allergies, Adverse Reactions, Alerts Description No Known Drug Allergies Medications Medication Date Status Form Strength Qnty SIG Indications Ordering Provider Hydrochlorothiazide 00/00 Active Tablets 25mg Take 1 Unknown /0000 Tablet By Mouth Every Day Ramipril Active Capsules 5mg Take One Unknown /0000 Capsule By Mouth Every Day Nitroglycerin Active Tablets 0.4mg as Brand, /0000 Sub needed Roney NOYOLA Metoprolol Succinate Active Tablets 50mg Take 1 Unknown ER /0000 ER 24HR Tablet By Mouth Every Day Atorvastatin Calcium Active Tablets 80mg Ronen, /0000 Samara N.P. Aspir-81 Active Tablets 81mg 1 by Unknown /0000 DR mouth every day Immunizations Description No Information Available Vital Signs Date Vital Result Comment 07/10/2018 1:36pm Weight 342.00 lb Weight 155.131 kg Height 72 inches 6'0" Height in cm's 182.9 cm BMI (Body Mass Index) 46.4 kg/m2 06/29/2018 9:58am Weight 342.00 lb Weight 155.131 kg Height 72 inches 6'0" Height in cm's 182.9 cm BMI (Body Mass Index) 46.4 kg/m2 Results Description No Information Available Procedures Date Code Description Status 06/29/2018 30467 Removal Wax Impaction Completed Encounters Type Date Location Provider Dx Diagnosis Office Visit 07/10/2018 [place] Trinidad Jordan, H60.312 Diffuse otitis 1:30p 10/03/07 [facility] externa, left ear Office Visit 06/29/2018 [place] Walker Dumont, H61.23 Impacted cerumen, 10:00a 10/03/07 bilateral H90.5 Unspecified sensorineural hearing loss H60.312 Diffuse otitis externa, left ear Plan of Treatment 07/10/2018 - ADNI IvanCH60.312 Diffuse otitis externa, left earComments: Mr. Banuelos still had evidence of a mild fungal otitis externa in the left canal.the ear was meticulously debrided and then nystatin/boric acid powder was placed in the ear canal. He is instructed to leave the ear as is until tomorrow at which time he will start [id number] Lotrimin drops twice a day. He was asked to follow-up next week but will be out of town. He agrees to follow-up when he returns and will take the drops with him on his trip.
--- OUTSIDE RECORDS SUMMARY | 2018-08-08 18:23 | XMS REPORT ---
:1950 External Reference #:[id number] Author Organization [facility] Address [address] [place] [address] Phone [phone] Care Team Providers Name Role Phone Hermilo Prather MD Care Team Information Rehab Services Aide Unavailable Hermilo Prather MD Primary Care Physician Unavailable Payers Type Date Identification Numbers Payment Provider Subscriber Commercial Policy Number: [id number] MVP Medicare Samara Marin PayID: [id number] [address] [place] [address] [facility] Part B Effective: Policy Number: Medicare [place] Samara Marin 2014 [id number] Expires: 2014 PayID: [id number] [address] [place] [address] Problems Date Description Provider Status Onset: 02/07/2007 [...] 1 E78.4 s Tablet By Ronen, Mouth MACHINE MOLDER SQUEEZE Every Day Ramipril 10/08 Active Capsules 5mg 90cap Take One I10 s Capsule Ronen, By Mouth MACHINE MOLDER SQUEEZE Every Day Nitrostat 03/16 Active Tablets 0.4mg 30tab 1 sl as Sub s needed, Yamilka, repeat M.D. every 5 minutes up to three tabs, call 911 Ecasa 05/05 Active 81mg 1 po qd /2005 [facility] Hydrochlorothiazi Active Tablets 25mg 90tab 1 by I10 Samara de /0000 s mouth Ronen, every day MACHINE MOL[employer] SQUEEZE Toprol XL Active Tablets ER 50mg 90tab Take 1 I10 Samara /0000 24HR s Tablet By Ronen, Mouth MACHINE MOLDER SQUEEZE Every Day Cheratussin ac 08/12 Hx Syrup [...] 1 po bid 790.21 s Rodolfo, - MACHINE MOLDER SQUEEZE 11/22 Ramipril 10/25 Hx Capsules 2.5mg 30cap 1 po 401.9 Nicol /2014 s daily Rodolfo, - MACHINE MOLDER SQUEEZE 10/08 Lipitor 05/22 Hx Tablets 80mg 30tab [...] one Samara s tablet po Ronen, - [facility] MACHINE MOLDER SQUEEZE 10/25 Niaspan 05/12 Hx Tablets ER 500mg [...] 1 qd [facility] Metoprolol 08/16 Hx 50 0unit / PO [...] CPT Code Status Date Vaccine Lot # [id number] Given 07/16/2017 High-Dose, Influenza Virus Vacccine-fluzone 65 and older 37785 Given 11/01/2016 Pneumococcal Immunization 21043 Given 09/13/2016 High-Dose, Influenza Virus Vacccine-fluzone 65 and older 66719 Given 08/21/2015 High-Dose, Influenza Virus Vacccine-fluzone 65 and older 54300 Given 10/08/2014 Influenza vac quadrivalent preservative free 3yrs [id number] and up Vital Signs Date Vital Result [...] Test Date Test Result H/L Range Note Lipid Profile 01/19/2017 Cholesterol 203 mg/dL High [...] 262.0-870.0 PSA 0.4 ng/mL 0.0-4.0 CBC Electronic (a) 01/19/2017 WBC 7.0 3.6-9.6 RBC 5.13 3.90-5.70 [...] Surgical Pathology SEE RESULT BELOW 5 finding Lipid Profile 07/09/2015 Cholesterol 221 mg/dL [...] 22-95 Alt (SGPT) 47 U/L High 7-35 6 Ast (Sgot) 35 U/L High 5-34 7 Total Bilirubin 0.7 mg/dL 0.2-1.3 GFR Non- >60 ml/min/1.73m^ >=60 GFR >60 ml/min/1.73m^ >=60 Laboratory test finding 07/09/2015 PSA 0.2 ng/mL 0.0-4.0 8 Comprehensive Metabolic Prof 10/08/2014 Sodium 138 mEq/L [...] Hemoglobin A1c 5.9 % High 4.1-5.7 finding (Fma/CMC,CX) CBC Electronic (Fma) 11/02/2013 WBC 5.9 3.6-9.6 RBC 4.95 3.90-5.70 Hemoglobin (Fma/CMC/CTX) 14.8 g/dL 12.1 - 17.2 Hematocrit (Fma/CMC/CTX) 44.9 % 36.1 - 50.3 Platelets 215 10^3/ul 150-400 Lymph% 35.8 % 17.0-48.0 Mixed% 6.3 Neutrophils % 57.9 Mean Corpuscular Vol 91 82.2-97.4 Mean Corpuscular Hemoglobin 29.8 27.6-33.3 Mean Corpuscular Hemo Concen 32.9 32.0-36.0 RDW 15.0 High 11.6-13.7 Mean Platelet Volume 6.5 6.5-11.0 Ua - Micro (Fma) 11/02/2013 Appearance CLEAR Color YELLOW Glucose, Urine (Fma/CMC/CTX) NEG Bilirubin NEG Ketones NEG SP Grav 1.025 Blood SMALL PH 5.5 Protein NEG Urobil 0.2 Nitrite NEG Leukocytes (Fma/CMC/[facility]rex) NEG Hyaline - /Lpf Granular - /Lpf WBC (Fma,Centrex) - RBC 1-3 Mucus (Fma/CBC/Centrex) SMALL AMOUNT /Lpf Epith - /Lpf Bacteria - /Hpf Amorphous (Fma/CMC/Centrex) - /Lpf Crystals, Fluid (Fma/CMC/CTX) - Z#Comments - Laboratory test finding 11/02/2013 Microalb, Random 29.8 mg/L 0.5-37 (Fma/CMC/CTX) Comprehensive Metabolic 11/02/2013 Albumin 4.9 g/dL 3.8-5.5 Prof Alk. Phos. 57 U/L 22-95 Alt (SGPT) [...] Calc 0.6-2.3 BUN/Creat Ratio 20.1 Calc 8.0-36.0 Lipid Profile 11/02/2013 Cholesterol 232 mg/dL High 120-200 HDL 24 mg/dL Low 30-70 Triglycerides 144 mg/dL 30-200 HDL Risk Factor 9.7 CALC High 0.0-4.4 LDL (Calculated) 179 CALC High 0-129 VLDL (Calculated) 29 mg/dL 0-50 Laboratory test finding 11/02/2013 TSH 4.32 mIU/L 0.50-6.00 PSA 0.27 ng/mL 0.00-4.00 Laboratory test finding 04/12/2011 PSA 0.20 ng/mL 0.00-4.00 12 Comprehensive Metabolic Prof 04/12/2011 Albumin 4.8 g/dL 3.8-5.5 Alk. Phos. 41 U/L 22-95 Alt (SGPT) 42 U/L High 10-40 Ast (Sgot) 40 U/L High 5-34 BUN 15 mg/dL 6-26 Calcium 9.0 mg/dL 8.6-10.2 Chloride 102 mEq/L 94-112 Creatinine 0.9 mg/dL 0.6-1.4 Carbon Dioxide 26 mEq/L 21-32 Glucose 112 mg/dL High 70-105 13 Sodium 138 mEq/L 134-149 Total Bilirubin 0.4 mg/dL 0.2-1.3 Total Protein 7.1 g/dL 6.3-8.1 Potassium 4.5 mEq/L 3.6-5.5 Globulin 2.4 g/dL 2.0-4.8 A/G Ratio 2.0 Calc 0.6-2.2 BUN/Creat Ratio 17.9 Calc 8.0-36.0 Lipid Profile 04/12/2011 Cholesterol 149 mg/dL 120-200 HDL 27 mg/dL Low 30-70 14 Triglycerides 129 mg/dL 30-200 HDL Risk Factor 5.5 CALC High 0.0-4.0 LDL (Calculated) 97 CALC 0-129 VLDL (Calculated) 26 mg/dL 0-50 Ua - Micro (Fma) 04/12/2011 Appearance clear [...] CALC 0-129 VLDL (Calculated) 31 mg/dL 0-50 Comprehensive Metabolic Prof 07/15/2010 Albumin 4.8 g/dL 3.8-5.5 Alk. [...] BUN/Creat Ratio 12.8 Calc 8.0-36.0 Laboratory test finding 07/15/2010 PSA 0.20 ng/mL 0.00-4.00 TSH 3.15 mIU/L 0.50-6.00 Laboratory test finding 07/15/2010 Testosterone, Serum 171 ng/dL Low 280- 800 Laboratory test finding 07/15/2010 Hemoglobin A1c 6.0 % High 4.1-5.7 (Fma/CMC,CX) Ua - Micro (Fma) 07/15/2010 Appearance clear Color yellow Glucose, Urine (Fma/CMC/CTX) neg Bilirubin neg Ketones neg SP Grav 1.015 Blood mod PH 5.0 Protein neg Urobil 0.2 Nitrite neg Leukocytes (Fma/CMC/Centrex) neg Hyaline - /Lpf Granular - /Lpf WBC (Fma,Centrex) 0-1 RBC 3-5 Mucus (Fma/CBC/Centrex) - /Lpf Epith - /Lpf Bacteria rare /Hpf Amorphous (Fma/CMC/[facility]rex) - /Lpf Crystals, Fluid (Fma/CMC/CTX) - Z#Comments - Laboratory test finding 03/14/2010 Homocysteine 7.5 umol/L 0.0-15.0 15 Vitamin D, 25 Oh 19.4 ng/mL Low 32.0-100.0 15, 16 CRP (High Sensitivity) 2.27 mg/L 0.00-3.00 15, 17 CBC (a) 03/14/2010 WBC 5.3 3.6-9.6 RBC 4.80 3.90-5.70 Hemoglobin (Fma/CMC/CTX) 14.6 g/dL 12.1 - 17.2 Hematocrit (Fma/CMC/CTX) 43.5 % 36.1 - 50.3 Mean Corpuscular Vol 90.6 82.2-97.4 Mean Corpuscular Hemaglobin 30.4 27.6-33.3 Mean Corpuscular Hemo Concen 33.6 33.0-36.0 Platelets 207 10^3/ul 150-400 Lymph% 39.7 20.5-51.1 Mixed% 14.1 Neutrophils % 46.2 RDW 15.4 High 11.6-13.7 Mean Platelet Volume 10.0 7.4-10.4 Lipid Profile 03/14/2010 Cholesterol 166 mg/dL 120-200 HDL 29 mg/dL Low 30-70 18 Triglycerides 131 mg/dL 30-200 HDL Risk Factor [...] Calc 0.6-2.2 BUN/Creat Ratio 16.0 Calc 8.0-36.0 Lipid Profile 12/09/2008 Cholesterol 204 mg/dL High 120-200 19 HDL 28 mg/dL Low 30-70 19, 20 Triglycerides 118 mg/dL 30-200 19 HDL Risk Factor 7.2 CALC High 4.2-7.0 19 LDL (Calculated) 152 CALC High 0-129 19 VLDL (Calculated) 24 mg/dL 0-50 19 Comprehensive Metabolic Prof 12/09/2008 Albumin 4.7 g/dL 3.8-5.5 19 Alk. Phos. 49 U/L 22-95 19 Alt (SGPT) 38 U/L 10-40 19 [...] 0.30 ng/mL 0.00-4.00 19 Ua - Micro (Fma) 12/09/2008 Appearance clear Color yellow Glucose, Urine [...] (Fma/CMC/CTX) - Z#Comments - Ua - Micro ([facility]) 11/12/2008 Appearance clear Color yellow Glucose - [...] Abs Basophils 0.1 0-0.2 Ua - Micro ([facility]) 10/10/2008 Appearance CLEAR Color YELLOW Glucose NEG Bilirubin NEG Ketones NEG SP Grav >1.030 Blood mod PH 6.0 Protein ssa neg Urobil 0.2 Nitrite neg Leukocytes (Fma/CMC/[facility]rex) neg Hyaline - /Lpf Granular - /Lpf WBC (Fma,[facility]rex) 0-2 RBC 3-6 Mucus sm amnt /Lpf Epith - /Lpf Bacteria - /Hpf Amorphous - /Lpf Crystals, Fluid (Fma/CMC/CTX) - Z#Comments - Comprehensive Metabolic Prof 10/10/2008 Albumin 4.5 g/dL 3.8-5.5 19 Alk. Phos. 51 U/L 19 Alt (SGPT) 50 U/L High 10-40 [...] < 200 NG/ML < 230 21, 22 Comprehensive Metabolic 02/07/2007 Albumin 4.6 g/dL 3.8-5.5 23 Prof Alk. Phos. 56 U/L 23 Alt (SGPT) 34 U/L 10-40 23 [...] 02/07/2007 PSA 0.29 ng/mL 0.00-4.00 23 Lipid Profile 02/07/2007 Cholesterol 176 mg/dL 120-200 23 HDL 32 mg/dL 30-70 23 Triglycerides 114 mg/dL 30-200 23 HDL Risk Factor 5.5 CALC 4.2-7.0 23 LDL (Calculated) 122 CALC 0-129 23 VLDL (Calculated) 23 mg/dL 0-50 23 Liver Function (Fma) 04/26/2006 Total Protein 7.9 g/dL 6.3-8.1 Albumin ([facility]) 4.4 3.8-5.5 A/G Ratio ([facility]) 1.3 0.6-2.2 Globulin 3.4 2.0-4.8 Alkaline Phosphatase (F/C/CTX) 57 U/L 30-110 Alt (SGPT) ([facility]) 37 10-40 Ast (Sgot) ([facility]) 24 U/mL 5-34 Bilirubin, Total 0.6 mg/dL 0.2-1.3 Bilirubin, Direct 0.2 mg/dL 0-0.6 Bilirubin, Indirect 0.38 ml/dl 0.10-1.0 Lipid Profile([facility]) Male 04/26/2006 Cholesterol 186 mg/dL 120-200 ([facility]) Triglyceride 107 mg/dL 30-200 HDL Cholesterol (Fma) Male 21 VERIFIED mg/dL Low 30-70 LDL, Calculated ([facility]) 144 CALC High 0-129 VLDL 21 0-50 HDL Risk Factor (Fma) 8.8 CALC High 4.2-7.0 Liver Function (Fma) 08/12/2005 Total Protein 7.7 g/dL 6.3-8.1 Albumin ([facility]) 4.7 3.8-5.5 A/G Ratio ([facility]) 1.6 0.6-2.2 Globulin 3.0 2.0-4.8 Alkaline Phosphatase (F/C/CTX) 44 U/L 30-110 Alt (SGPT) ([facility]) 37 10-40 Ast (Sgot) ([facility]) 33 U/mL 5-34 Bilirubin, Total 0.5 mg/dL 0.2-1.3 Bilirubin, Direct 0.3 mg/dL 0-0.6 Bilirubin, Indirect 0.14 ml/dl 0.10-1.0 Lipid Profile(a) Male 08/12/2005 Cholesterol 223 mg/dL High 120-200 Triglyceride 135 mg/dL 30-200 HDL Cholesterol (Fma) Male 28 mg/dL Low 30-70 24 LDL, Calculated ([facility]) 168 CALC High 0-129 LDL Direct ([facility]) - mg/dL 0-130 VLDL 27 0-50 HDL Risk Factor (Fma) 8.1 CALC High 4.2-7.0 Laboratory test finding 08/12/2005 PSA 0.31 0.0-4.0 Lipid Profile(a) Male 05/25/2005 Cholesterol 284 mg/dL High 120-200 Triglyceride 164 mg/dL 30-200 HDL Cholesterol (Fma) Male 28 mg/dL Low 30-70 25 LDL, Calculated ([facility]) 223 CALC High 0-129 LDL Direct ([facility]) - mg/dL 0-130 VLDL 33 0-50 HDL Risk Factor (Fma) 10.0 CALC High 4.2-7.0 Liver Function (a) 05/25/2005 Total Protein 7.5 g/dL 6.3-8.1 Albumin ([facility]) 4.4 3.8-5.5 A/G Ratio ([facility]) 1.4 0.6-2.2 Globulin 3.2 2.0-4.8 Alkaline Phosphatase (F/C/CTX) 55 U/L 22-95 Alt (SGPT) ([facility]) 29 10-40 Ast (Sgot) ([facility]) 26 U/mL 5-34 Bilirubin, Total 0.6 mg/dL 0.2-1.3 Bilirubin, Direct 0.3 mg/dL 0-0.6 Bilirubin, Indirect 0.29 ml/dl 0.10-1.0 Lipid Profile(a) Male 11/10/2004 Cholesterol 197 mg/dL 120-200 Triglyceride 161 mg/dL 30-200 HDL Cholesterol (a) Male 29 RESULTS SCOT'D mg/dL Low 30-70 LDL, Calculated ([facility]) 136 CALC High 0-129 LDL, Direct - mg/dL 0-130 VLDL 32 0-50 HDL Risk Factor (a) 6.9 CALC 4.2-7.0 Liver Function ([facility]) 08/06/2004 Total Protein 8.0 g/dL 6.3-8.1 Albumin ([facility]) 4.5 3.8-5.5 A/G Ratio ([facility]) 1.3 0.6-2.2 Globulin 3.6 2.0-4.8 Alkaline Phosphatase (F/C/CTX) 47 U/L 30-110 Alt (SGPT) 33 7-35 Ast (Sgot) ([facility]) 27 U/mL 5-34 Bilirubin, Total 1.2 mg/dL 0.2-1.3 Bilirubin, Direct 0.2 mg/dL 0-0.6 Bilirubin, Indirect 1.01 ml/dl High 0.10-1.0 Lipid Profile([facility]) Male 08/06/2004 Cholesterol 223 mg/dL High 120-200 Triglyceride 164 mg/dL 30-200 HDL Cholesterol (a) Male 29 RESULT SCOT'D mg/dL Low 30-70 LDL, Calculated ([facility]) 161 CALC High 0-129 LDL, Direct - mg/dL 0-130 VLDL 33 0-50 HDL Risk Factor (Fma) 7.7 CALC High 4.2-7.0 Laboratory test finding 08/06/2004 PSA 0.31 0.0-4.0 Lipid Profile ([facility]) 06/24/2003 Cholesterol 189 mg/dL 120-200 ([facility]) Triglyceride 146 mg/dL 30-200 HDL-Chol 29, VERIFIED Low 30-85 LDL, Calculated ([facility]) 130 CALC High 0-129 VLDL 29 0-50 HDL Risk Factor ([facility]) 6.5 CALC 4.2-7.0 Laboratory test finding 06/24/2003 PSA ([facility]/[place]) 0.35 0.0-4.0 Liver Function ([facility]) 06/24/2003 Total Protein 7.7 g/dL 6.3-8.1 Albumin ([facility]) 4.6 3.8-5.5 A/G Ratio ([facility]) 1.5 0.6-2.2 Globulin 3.0 2.0-4.8 Alkaline Phosphatase (F/C/CTX) 50 U/L 30-110 Alt (SGPT) ([facility]) 31 10-40 Ast (Sgot) ([facility]/[place]) 25 U/mL 5-34 Bilirubin, Total 0.7 mg/dL 0.2-1.3 Bilirubin, Direct 0.3 mg/dL 0-0.6 Bilirubin, Indirect 0.44 ml/dl 0.10-1.0 Liver Function ([facility]) 02/28/2003 Total Protein 8.1 g/dL 6.3-8.1 Albumin ([facility]) 4.9 3.8-5.5 A/G Ratio ([facility]) 1.5 0.6-2.2 Globulin 3.2 2.0-4.8 Alkaline Phosphatase (F/C/CTX) 58 U/L 22-95 Alt (SGPT) 33 10-40 Ast (Sgot) ([facility]) 33 U/mL 5-34 Bilirubin, Total 0.7 mg/dL 0.2-1.3 Bilirubin, Direct 0.3 mg/dL 0-0.6 Bilirubin, Indirect 0.39 ml/dl 0.10-1.0 Lipid Profile ([facility]) 02/28/2003 Cholesterol 236 mg/dL High 120-200 Triglyceride 254 mg/dL High 30-200 HDL-Chol 28 SEE DETAILS Low 30-70 26 LDL-Calculated ([facility]) INVALID CALC 0-129 VLDL 51 High 0-50 HDL Risk Factor (Fma) 8.5 CALC High 4.2-7.0 Laboratory test finding 02/28/2003 LDL, Direct 201 mg/dL High 0-130 CBC Electronic ([facility]) 07/24/2002 WBC 5.3 4.8-10.8 RBC 5.22 4.6-6.2 [...] 0-0.6 Abs Basophils 0 0-0.2 Liver Function ([facility]) 05/08/2002 Albumin 4.3 3.8-5.5 Alkaline Phosphatase 48 U/L 22-95 Bilirubin, Direct 0.3 mg/dL 0-0.6 Bilirubin, Total 0.4 mg/dL 0.2-1.3 Ast (Sgot) 24 5-40 Alt (SGPT) 27 10-40 Total Protein 7.3 g/dL 6.4-8.3 Bilirubin, Indirect 0.10 ml/dl 0.10-1.0 Lipid Profile ([facility]) 05/08/2002 Cholesterol 243 mg/dL High 140-200 Triglyceride 120 mg/dL 30-150 VLDL 24 0-50 LDL-Calculated 189 High 0-160 HDL-Chol 30 30-70 Liver Function ([facility]) 01/10/2001 Albumin 4.6 3.8-5.5 Alkaline Phosphatase 47 U/L 53-128 Bilirubin, Direct 0.1 mg/dL 0-0.6 Bilirubin, Total 0.4 mg/dL 0.2-1.3 Ast (Sgot) 22 9-44 Alt (SGPT) 31 10-40 Total Protein 7.6 g/dL 6.4-8.3 Bilirubin, Indirect 0.30 ml/dl 0.10-1.0 Lipid Profile ([facility]) 01/10/2001 Cholesterol 200 mg/dL 140-200 Triglyceride 103 mg/dL 30-150 VLDL 21 0-50 LDL-Calculated 148 0-160 HDL-Chol 31 30-70 Lipid Profile ([facility]) 11/27/2000 Triglyceride 106 mg/dL 40-200 Cholesterol 218 mg/dL High 100-200 HDL-Chol 30 Low 35-60 Cholesterol / HDL Ratio 7.27 AVG High 1-4.97 LDL-Calculated 167 High 1-130 Liver Function ([facility]) 11/27/2000 Total Protein 8.2 GM/DL High 6.2-8.1 [...] [address]: Shivam Watts MD Acct: [id number] Unit: [id number] AGE: 65 Location: [facility] Re11/18/15 SEX: M Status: REG REF SPEC: [id number] RITA: 11/18/15- SUBM DR: Shivam Watts MD REQ: [id number] RECD: 11/18/15 STATUS: RENARD ENCINAS DR: Hermilo [...] performed at Main Lab DEPARTMENT OF PATHOLOGY, [address] [place] [address] Antony Cervantes M.D. Director [facility] # [id number] RUN DATE: 11/19/15 [facility] LAB LIVE PAGE 2 Patient: SAMARA MARIN Stew [id number] (Continued) GROSS DESCRIPTION (Continued) Signed (signature on file) Nicol Montes MD 1328 END OF REPORT * ML=Testing performed at Main Lab DEPARTMENT OF PATHOLOGY, [address] [place] [address] Antony Cervantes M.D. Director [facility] # [id number] RESULTS VERIFIED BY REPEAT ANALYSIS 7 RESULTS VERIFIED BY REPEAT ANALYSIS 8 FASTING 9 RESULTS VERIFIED BY REPEAT ANALYSIS 10 RESULTS VERIFIED BY REPEAT ANALYSIS 11 RESULT SCOT'D 12 FASTING 13 RESULT SCOT'D 14 RESULT SCOT'D 15 FASTING; 2 SST 1 RED TOP SPUN POURED OFF IN TRANSPORT TUBE AND REFRIDGERATED 16 Recent studies consider the lower limit of 32.0 ng/mL to be a threshold for optimal health. Abran MANNING. J Nutr. 2005 Nov;135(2):317-22. 17 . hs-CRP Result (mg/L) Risk Level <1.0 Low 1.0-3.0 Average >3.0 High Patients with persistently unexplained, marked elevation of hs-CRP (greater than 10 mg/L) after repeated testing should be evaluated for non-cardiovascular etiologies. . 18 RESULT SCOT'D 19 FASTING 20 RESULT SCOT'D 21 STAT [...] Procedures Date CPT Code Description Status 07/31/2018 45389 Remove Impact Cerumen Irrigati Completed 10/03/2016 Colonoscopy Completed 08/12/2015 08169 Pulse Oximetry Completed 11/14/2013 33506 Finger Or Heel Stick Completed 09/14/2011 50514 Electrocardiogram Complete Completed 10/10/2008 49663 Electrocardiogram Complete Completed 07/18/2000 59705 Electrocardiogram Interpretation & Report Only Completed Encounters Type Date Location Provider CPT E/M Dx Office Visit 01/19/2017 1:30p Main Office [place] 63267 E78.4 I10 E29.1 N40.0 Office Visit 08/12/2015 7:15p Main Office Wyatt Flores 67879 R05 Office Visit 07/09/2015 1:00p [facility] Hermilo Prather M.D. 00990 Z00.00 I25.10 I10 Z12.11 Z12.5 Office Visit 11/01/2014 1:30p [place] [address] 680.2 Office Visit 10/08/2014 11:00a Main Office Wyatt Flores 97270 401.9 272.4 V04.81 Office Visit 11/22/2013 1:20p Main Office Hermilo Prather M.D. 99718 V70.0 414.00 401.9 272.4 V76.51 257.2 Office Visit 10/25/2013 1:00p Main Office [place] 86056 414.00 401.9 272.0 600.00 Office Visit 09/14/2011 7:45p Main Office Samara Hardwick, [facility] [address]17[address] 414.00 Office Visit 04/12/2011 3:10p [facility] Hermilo Prather M.D. 75326 V70.0 414.00 278.00 257.2 V76.44 Office Visit 07/15/2010 9:00a [facility] Hermilo Prather M.D. 60715 786.9 414.00 401.9 268.9 V76.44 257.2 278.00 Office Visit 03/13/2010 3:30p Main Office Michaelle Ospina M.D. 86733 272.0 414.00 268.9 Office Visit 12/09/2008 10:10a [facility] Hermilo Parther M.D. 76874 414.00 272.0 599.70 401.9 Office Visit 02/07/2007 9:40a Main Office Hermilo Prather M.D. 92285 414.00 272.0 V76.44 Office Visit 05/05/2006 4:00p Main Office Hermilo Prather M.D. 94316 414.00 272.0 368.9 Office Visit 09/02/2005 4:30p Main Office Hermilo Prather M.D. 57377 272.0 Office Visit 08/12/2005 10:00a Main Office Hermilo Prather M.D. 92239 414.00 272.0 V58.69 V76.41 V76.44 Office Visit 05/25/2005 11:00a Main Office Hermilo Prather M.D. 63320 414.00 272.0 110.1 V58.69 Office Visit 08/06/2004 2:40p Main Office Hermilo Prather M.D. 22534 414.00 272.0 V76.44 Office Visit 06/04/2003 3:00p Main Office Hermilo Prather M.D. 78223 414.00 272.4 786.09 Office Visit 02/28/2003 2:10p Main Office Hermilo Prather M.D. 79936 272.0 Office Visit 05/07/2002 2:00p Main Office Hermilo Prather M.D. 83746 Office Visit 06/30/2001 2:10p Main Office Hermilo Prather M.D. 83328 Office Visit 01/10/2001 9:20a Main Office Hermilo Prather M.D. 64795 Office Visit 11/03/2000 3:00p Main Office Hermilo Prather M.D. 57459 Office Visit 08/16/2000 7:40p Main Office Hermilo Prather M.D. 44025 Plan of Care 07/31/2018 - Gabrielle Yang, NPI10 Essential (primary) hypertensionNew Labs: Comp Metabolic-ALL Lab CompaniCBC Electronic-ALL Lab CompaniTSH ([facility] )Comments:The patient will continue to monitor blood pressure and let me know the blood pressure results if there are readings persistently above 140/80. Goal blood pressure is less than 140/80. Recommend low salt/cardiac diet and routine exercise. continue current medications encouraged weight loss - 20lb goal with Lobo before 10/20184994B53.5 Hyperlipidemia, unspecifiedNew Labs:Lipid Panel 1Comments:will recheck since you are hereFollow up:3-6 months [...] Encounter for screening for malignant neoplasm of prostateNew Labs:PSA (ALL Lab Comp) AllComments:~B_~U_Medication Management~b_~u_ Patient Understands medications he 's taking? Yes No Are there Barriers to Adherence? Yes No Has the patient been asked about herbal supplements and therapies, and OTC meds? Yes No ~B_~U_Care Plan~b_~u_1. Patient has been queried about patient's goals/preferences and functional/lifestyle goals at relevant visits. If relevant, describe: [...] have questions about how or where to start , please contact the office.Follow up:Please schedule a full preventative well visit at your earliest convenience
[2018-08-08 18:36] VITALS: BP 141/61
--- NOTE | 2018-08-08 18:50 | UC ---
Eye Complaint HPI - HPI Summary HPI Summary: The patient is a 68-year-old male that presents here with about an hour to an hour and a half history of the foreign body sensation under the left upper eyelid. He was outside when this occurred. Now he is having marked pain when he blinks. His left eye is tearing. - History of Current Complaint Chief Complaint: UCEye Stated Complaint: FOREIGN BODY IN EYE Time Seen by Provider: 08/08/18 18:40 Hx Obtained From: Patient Onset/Duration: Sudden Onset, Lasting Hours Timing: Constant Severity Initially: Moderate Severity Currently: Moderate Pain Intensity: 5 Pain Scale Used: 0-10 Numeric Location of Injury: Eye Lid (upper) - L Character: Throbbing, Foreign Body Sensation Aggravating Factor(s): Light Alleviating Factor(s): Darkness Associated Signs And Symptoms: Positive: Drainage (Clear) Related History: Foreign Body Eyes: 1 - multiple corneal abrasions 2 - Left upper eyelid everted/red inflamed area noted but I did not see a FB - Allergies/Home Medications Allergies/Adverse Reactions: Allergies Allergy/AdvReac Type Severity Reaction Status Date / Time No Known Allergies Allergy Verified 08/08/18 18:37 Home Medications: Home Medications Hydrochlorothiazide TAB* [Hydrodiuril TAB*] 25 mg PO DAILY 08/08/18 [History Confirmed 08/08/18] PMH/Surg Hx/FS Hx/Imm Hx Previously Healthy: Yes Endocrine History: Dyslipidemia Cardiovascular History: Hypertension - Surgical History Surgical History: Yes Surgery Procedure, Year, and Place: cardiac stent - Family History Known Family History: Positive: Hypertension - Social History Alcohol Use: Rare Substance Use Type: None Smoking Status (MU): Never Smoked Tobacco Review of Systems Constitutional: Negative Skin: Negative Eyes: Eye Redness, Photophobia ENT: Negative Respiratory: Negative Cardiovascular: Negative Gastrointestinal: Negative Genitourinary: Negative Motor: Negative Neurovascular: Negative Musculoskeletal: Negative Neurological: Negative Psychological: Negative All Other Systems Reviewed And Are Negative: Yes Physical Exam Triage Information Reviewed: Yes Appearance: Well-Appearing, No Pain Distress, Well-Nourished Vital Signs: Initial Vital Signs Temp 98.2 F 08/08/18 18:32 Pulse 79 08/08/18 18:32 Resp 18 08/08/18 18:32 BP 141/61 08/08/18 18:32 Pulse Ox 95 08/08/18 18:32 Eyes: Positive: Conjunctiva Inflamed, Other: - multiple paired abrasions left cornea, FB not visualized ENT: Negative: Hearing grossly normal, Trismus, Muffled voice, Hoarse voice Neck: Positive: Supple Respiratory: Positive: Lungs clear, Normal breath sounds, No respiratory distress Cardiovascular: Positive: RRR Musculoskeletal: Positive: ROM Intact, No Edema Neurological: Positive: Alert Psychological Exam: Normal Skin Exam: Normal Eye Complaint Course/Dx - Differential Dx/Diagnosis Provider Diagnoses: left eye- suspect foreign body under eyelid. 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
[2018-08-08] MEDS ORDERED: Tetracaine 0.5% OPTH.SOL 15ML* BTL LEFT EYE ONE (19:02)
[2018-08-08] MEDS ORDERED: Fluorescein Sodium TOPICAL* 1 MG TEST STRIP OPHTHALMIC ONE (19:03)
[2018-08-08] MEDS ORDERED: Tetracaine 0.5% OPTH.SOL 4 ML* 1 DROP BTL ONE (19:07)
[2018-08-08] MEDS ORDERED: Erythromycin OPTH OINT* APPLIC OINT LEFT EYE ONE (19:20)
== END 2018-08-08 19:50 | disposition home or self-care (01) ==
LOC: UCEAST 18:17
DX: S05.02XA Injury of conjunctiva and corneal abrasion without foreign body, left eye, initial encounter (principal); X58.XXXA Exposure to other specified factors, initial encounter; Y92.9 Unspecified place or not applicable; I10 Essential (primary) hypertension
CPT/HCPCS: 99212; A9270-GY; G0463